=== PATIENT | female | born 1995 | race Caucasian/White ===

== ENCOUNTER 2023-12-20 13:13 | Emergency (ER) | payer OTHER, SELFPAY ==
[2023-12-20 13:20] VITALS: BP 144/102; PULSE 84; RESP 18; TEMP 36.7; O2SAT 98; BMI 40.4
--- NOTE | 2023-12-20 13:40 | XR_ITS ---
Patient: AARON HU Facility:?[facility] Patient ID:?[id number] Site Patient ID:?[id number]. Site :?[id number] Study:?XRay-Extremity Left 3 VIEWS-12/20/2023 2:18:20 PM Ordering Physician:ELIAS Final Report: INDICATION: Injury. TECHNIQUE: Left hand 3rd digit, 3 view. COMPARISON: None. FINDINGS: Oblique view is limited by overlapping digits. There is a possible nondisplaced fracture through the base of the 3rd middle phalanx extending to the articular surface. On lateral view, there appears to be a small round lucent lesion in the base of the 3rd middle phalanx as well. No dislocation. Soft tissues are unremarkable. IMPRESSION: Possible acute nondisplaced fracture through the base of the 3rd middle phalanx. Consider follow-up radiographs in 7-10 days. Dictated by Reny Marte MD @ 12/20/2023 3:04:45 PM Signed by:?Reny Marte MD @12/20/2023 3:04:45 PM (Electronic Signature)
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
== END 2023-12-20 15:13 | disposition home or self-care (01) ==
PROVIDERS: Emergency Provider Emergency Medicine Emergency Medical Services
DX: S60.032A Contusion of left middle finger without damage to nail, initial encounter (principal); V47.5XXA Car driver injured in collision with fixed or stationary object in traffic accident, initial encounter; Y92.410 Unspecified street and highway as the place of occurrence of the external cause
CPT/HCPCS: 73140; 99283; 99284